=== PATIENT | female | born 1945 | race Asian ===

== ENCOUNTER 2018-05-29 03:58 | Emergency (ER) | payer MEDICARE, OTHER ==
[~2018-05-29] VITALS: Ht 154.9 cm; Wt 57.7 kg
[~2018-05-29 03:58] MED LIST: ALEN70TA10 PO; ASA PO; CALC1TAB90 PO; FEXO-58 PO; FISH1CAP49 PO; LEVO50 PO; METF-960 PO; RANI150T7 PO; TELM40 PO
[2018-05-29 04:14] LABS: GLUCOSE,POINT OF CARE 143 MG/DL (70-110)
[2018-05-29 04:31] LABS: BASOPHILS % (AUTO) 0.5 % (0.0-2.0); HEMOGLOBIN 14.5 g/dL (12.0-16.0); LYMPHOCYTES # (AUTO) 2.1 K/uL (1.0-4.8); LYMPHOCYTES % (AUTO) 30.4 % (22.0-44.0); MEAN CORPUSCULAR HGB CONC 33.8 G/dL (31.0-37.0); MEAN CORPUSCULAR VOLUME 95 fL (80-100); MONOCYTES # (AUTO) 0.7 K/uL (0.1-1.0); MONOCYTES % (AUTO) 10.8 % (2.0-9.0); NEUTROPHILS # (AUTO) 3.8 K/uL (1.8-7.7); NEUTROPHILS % (AUTO) 55.3 % (40.0-70.0); PLATELET COUNT (AUTO) 141 K/uL (150-450); RED BLOOD CELL COUNT(AUTO) 4.53 MIL/uL (4.00-5.20); RED CELL DISTRIBUTION WIDTH 13.7 % (11.5-14.5)
[2018-05-29 04:32] LABS: APPEARANCE,URINE CLOUDY (CLEAR); BILIRUBIN,URINE NEGATIVE (NEGATIVE); GLUCOSE, URINE (UA) NEGATIVE (NEGATIVE); KETONES,URINE TRACE mg/dL (NEGATIVE); LEUKOCYTE ESTERASE ,URINE LARGE (NEGATIVE); NITRATE,URINE NEGATIVE (NEGATIVE); OCCULT BLOOD,URINE LARGE (NEGATIVE); PROTEIN,URINE POS 1+ (NEGATIVE); UROBILINOGEN,URINE 0.2 mg/dL (<=1.0)
[2018-05-29 04:37] LABS: ANION GAP 8 mmol/L (8-16); CALCIUM, TOTAL 9.7 mg/dL (8.8-10.5); CARBON DIOXIDE 29 mmol/L (22-29); CHLORIDE 105 mmol/L (98-107); CREATININE 0.84 mg/dL (0.60-1.30); GLOMERULAR FILTR. RATE CALC > 60 mL/min (>60); GLUCOSE,RANDOM 150 mg/dL (70-110); POTASSIUM 4.1 mmol/L (3.5-5.1); SODIUM SERUM 142 mmol/L (136-145); UREA NITROGEN, BLOOD 12 mg/dL (7-18)
[2018-05-29 04:40] LABS: BACTERIA,URINE Moderate /HPF (None Seen); RBC,URINE Full Field /HPF (0-2); WBC,URINE 26-50 /HPF (0-5)
[2018-05-29 04:41] LABS: SQUAMOUS EPITHELIAL CELL,UR Rare /LPF (None Seen)
[2018-05-29 04:42] LABS: ALANINE AMINOTRANSFERASE 59 U/L (12-78); ALBUMIN 3.6 g/dL (3.4-5.0); ALKALINE PHOSPHATASE 51 U/L (46-116); ASPARTATE AMINOTRANSFERASE 62 U/L (15-37); BILIRUBIN,TOTAL 0.4 mg/dL (0.1-1.0); TOTAL PROTEIN, SERUM 7.2 g/dL (6.4-8.2)
[2018-05-29 05:45] VITALS: BP 139/88
== END 2018-05-29 05:56 | disposition home or self-care (01) ==
LOC: EMS 03:59
DX: N39.0 Urinary tract infection, site not specified (principal); E11.9 Type 2 diabetes mellitus without complications; K21.9 Gastro-esophageal reflux disease without esophagitis; I10 Essential (primary) hypertension; E03.9 Hypothyroidism, unspecified; M19.90 Unspecified osteoarthritis, unspecified site; Z90.49 Acquired absence of other specified parts of digestive tract; Z90.12 Acquired absence of left breast and nipple; Z88.8 Allergy status to other drugs, medicaments and biological substances; Z79.84 Long term (current) use of oral hypoglycemic drugs
CPT/HCPCS: 87086

== ENCOUNTER 2019-11-13 13:44 | Emergency (ER) | payer MEDICARE, OTHER ==
[~2019-11-13] VITALS: Ht 154.9 cm; Wt 56.8 kg
[~2019-11-13 13:44] MED LIST changes: -ALEN70TA10 PO; +ALEN70TA65 PO
[2019-11-13 14:50] VITALS: BP 134/89
[2019-11-13] MEDS ORDERED: FISH1 PO (14:55)
[2019-11-13] MEDS ORDERED: METF-911 PO (14:55)
[2019-11-13] MEDS ORDERED: CARV3.1231 PO (14:55)
[2019-11-13] MEDS ORDERED: OS500 PO (14:55)
[2019-11-13] MEDS ORDERED: ATOR10TA69 PO (14:55)
[2019-11-13] MEDS ORDERED: ASPI-1111 PO (14:55)
[2019-11-13] MEDS ORDERED: DiphenhydrAMINE HCL 25 MG CAPSULE PO ONE (15:00)
== END 2019-11-13 15:01 | disposition home or self-care (01) ==
LOC: EMS 13:51
DX: L27.0 Generalized skin eruption due to drugs and medicaments taken internally (principal); R11.10 Vomiting, unspecified; R50.9 Fever, unspecified; E11.9 Type 2 diabetes mellitus without complications; K21.9 Gastro-esophageal reflux disease without esophagitis; I10 Essential (primary) hypertension; Z90.710 Acquired absence of both cervix and uterus; Z79.84 Long term (current) use of oral hypoglycemic drugs; Z88.8 Allergy status to other drugs, medicaments and biological substances
CPT/HCPCS: Z7502; Z7610